=== PATIENT | female | born 2000 | race Caucasian/White ===

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

== ENCOUNTER 2025-05-12 04:32 | Inpatient (IN) | payer OTHER, SELFPAY ==
[2025-05-12 05:34] VITALS: BMI 22.1
[2025-05-12] MEDS ORDERED: Calcium Carbonate 500 MG ChewTAB PO PRN (05:42)
[2025-05-12] MEDS ORDERED: Acetaminophen 325 MG TAB PO PRN (05:42)
[2025-05-12] MEDS ORDERED: Electrolyte Replacement Protocol 1 EACH FS SCH (05:45)
[2025-05-12 06:20] LABS: #Basophils 0.04 10x3/uL (0.0-0.2); #Eosinophils 0.07 10x3/uL (0.0-0.7); #Monocytes 0.66 10x3/uL (0.11-0.59); #Neutrophils 5.89 10x3/uL (1.40-6.50); %Basophils 0.5 % (0.0-1.0); %Eosinophils 0.9 % (0.0-10.0); %Lymphocytes 17.5 % (21.0-51.0); %Monocytes 8.1 % (0.0-10.0); %Neutrophils 72.6 % (42.0-75.0); Hematocrit 35.2 % (36.0-47.0); Hemoglobin 12.0 g/dL (12.0-16.0); Mean Corpuscular Hemoglobin 32.4 pg (27.0-31.0); Mean Corpuscular Volume 95.1 fL (78.0-98.0); Platelet Count 205 10x3/uL (130-400); Red Blood Cell (RBC) Count 3.70 mill/uL (4.20-5.40); White Blood Cell (WBC) Count 8.11 10x3/uL (4.8-10.8)
[2025-05-12 06:36] LABS: ALT (SGPT) 19 U/L (Less than 34); AST (SGOT) 19 U/L (11-34); Albumin 3.4 g/dL (3.1-4.5); Alkaline Phosphatase 44 U/L (40-110); Anion Gap 10 mmol/L (10-20); BUN (Urea Nitrogen) 9 mg/dL (7.0-18.7); Bilirubin, Total 1.2 mg/dL (0.3-1.2); Calc. Creatinine Clearance 151 mL/min (70-130); Calcium 7.8 mg/dL (7.8-10.44); Carbon Dioxide 23 mmol/L (22-29); Chloride 106 mmol/L (98-107); Globulin 2.8 g/dL (2.4-3.5); Glucose 90 mg/dL (70-105); Potassium 3.1 mmol/L (3.5-5.1); Sodium 136 mmol/L (136-145)
[2025-05-12] MEDS: cefTRIAXone\\ROCEPHIN 1 GM in Sodium Chloride 0.9% 100 ML IVPB SCH (08:37)
[2025-05-12] MEDS: Potassium Chloride 20 MEQ in Premix 1 BAG IVPB SCH (08:37)
[2025-05-12] MEDS: Ondansetron PF 4 MG/2 ML Vial IVP PRN (08:38)
[2025-05-12] MEDS: Prochlorperazine 10 MG/2 ML VIAL SLOW IVP PRN (14:51)
[2025-05-13 05:45] LABS: #Basophils 0.04 10x3/uL (0.0-0.2); #Eosinophils 0.14 10x3/uL (0.0-0.7); #Monocytes 0.59 10x3/uL (0.11-0.59); #Neutrophils 4.26 10x3/uL (1.40-6.50); %Basophils 0.6 % (0.0-1.0); %Eosinophils 2.1 % (0.0-10.0); %Lymphocytes 25.7 % (21.0-51.0); %Monocytes 8.7 % (0.0-10.0); %Neutrophils 62.6 % (42.0-75.0); Hematocrit 34.4 % (36.0-47.0); Hemoglobin 12.1 g/dL (12.0-16.0); Mean Corpuscular Hemoglobin 32.6 pg (27.0-31.0); Mean Corpuscular Volume 92.7 fL (78.0-98.0); Platelet Count 218 10x3/uL (130-400); Red Blood Cell (RBC) Count 3.71 mill/uL (4.20-5.40); White Blood Cell (WBC) Count 6.80 10x3/uL (4.8-10.8)
[2025-05-13 05:59] LABS: ALT (SGPT) 27 U/L (Less than 34); AST (SGOT) 31 U/L (11-34); Albumin 3.6 g/dL (3.1-4.5); Alkaline Phosphatase 42 U/L (40-110); Anion Gap 10 mmol/L (10-20); BUN (Urea Nitrogen) 7 mg/dL (7.0-18.7); Bilirubin, Total 1.3 mg/dL (0.3-1.2); Calc. Creatinine Clearance 148 mL/min (70-130); Calcium 8.0 mg/dL (7.8-10.44); Carbon Dioxide 25 mmol/L (22-29); Chloride 103 mmol/L (98-107); Globulin 2.7 g/dL (2.4-3.5); Glucose 82 mg/dL (70-105); Potassium 3.0 mmol/L (3.5-5.1); Sodium 135 mmol/L (136-145)
[2025-05-13 07:57] VITALS: BP 121/72; TEMP 97.7
[2025-05-13] MEDS: Potassium Chloride 20 MEQ in Premix 1 BAG IVPB SCH (08:50)
[2025-05-13] MEDS: Famotidine 20 MG TAB PO SCH (09:00)
[2025-05-13] MEDS: Mag-Al 1200 mg/1200 mg/30 ML UDCUP PO SCH (11:20)
[2025-05-13] MEDS: Mineral Oil ENEMA PR SCH (15:34)
== END 2025-05-13 18:28 | disposition home or self-care (01) | DRG 690 ==
LOC: T4-B 05:26 → OBSVTOIN 05-13 12:35
PROVIDERS: ADMIT Student in an Organized Health Care Education/Training Program; ATTEND Hospitalist
DX: N39.0 Urinary tract infection, site not specified (principal); R11.2 Nausea with vomiting, unspecified; E87.6 Hypokalemia; F41.9 Anxiety disorder, unspecified; F32.A Depression, unspecified; F12.10 Cannabis abuse, uncomplicated; F10.90 Alcohol use, unspecified, uncomplicated; K59.00 Constipation, unspecified; K29.70 Gastritis, unspecified, without bleeding; Z91.013 Allergy to seafood; Z88.8 Allergy status to other drugs, medicaments and biological substances
CPT/HCPCS: 36415; 74018; 80053; 85025; 94640; 96374; 96375; 96376; G0378; J0696; J0780; J2060; J2405; J2919; J3480; J7120; J7620